=== PATIENT | male | born 1985 | race Caucasian/White ===

== ENCOUNTER 2018-04-30 10:39 | Emergency (ER) | payer SELFPAY ==
[~2018-04-30] VITALS: Ht 177.8 cm; Wt 140.6 kg
[2018-04-30 10:40] VITALS: BP 130/72
--- NOTE | 2018-04-30 10:43 | NUR ---
PT AMBULATED TO ER BED 07
--- NOTE | 2018-04-30 10:50 | NUR ---
bib family with c/o throat pain, subjective fevers, fatigue, and "coughing up blood"; Seen at [facility] 4 days ago, sent home with abx, which pt reports still taking. DENIES N/V/D; SKIN IS PINK/WARM/DRY; AAOX4 WITH EVEN AND STEADY GAIT; HR EVEN AND REGULAR; PT DENIES ANY FEVER, CP, SOB AT THIS TIME; PATIENT STATES PAIN OF 10/10 AT THIS TIME; VSS; PATIENT POSITIONED FOR COMFORT; HOB ELEVATED; BEDRAILS UP X2; BED DOWN. ER MD MADE AWARE OF PT STATUS.
[2018-04-30] MEDS ORDERED: cefTRIAXone 1,000 MG in LIDOCAINE 1% ***ER ONLY *** 2.1 ML IM ONE (11:00)
[2018-04-30] MEDS ORDERED: DEXAMETHASONE 10 MG/ML VIAL IM ONE (11:00)
[2018-04-30] MEDS ORDERED: ALBUTEROL SULFATE/IPRATROPIU 3 ML SOL IH ONE (11:00)
[2018-04-30] MEDS ORDERED: cefTRIAXone 1,000 MG VIAL ONE (11:09)
[2018-04-30] MEDS ORDERED: LIDOCAINE MPF 1% - 5 mL VIAL 5 ML ONE (11:10)
--- NOTE | 2018-04-30 11:13 | NUR ---
RT AT BEDSIDE.
[2018-04-30 11:29] VITALS: BP 125/78
--- NOTE | 2018-04-30 11:30 | NUR ---
Patient discharged with v/s stable. Written and verbal after care instructions given and explained. Patient alert, oriented and verbalized understanding of instructions. Ambulatory with steady gait. All questions addressed prior to discharge. ID band removed. Patient advised to follow up with PMD. Rx of PROEMTHAZINE, PROMETHAZINE, CLINDAMYCIN given. Patient educated on indication of medication including possible reaction and side effects. Opportunity to ask questions provided and answered.
[2018-05-01] MEDS ORDERED: LACT10CA PO (16:24)
[2018-05-01] MEDS ORDERED: ACET-9525 PO (16:24)
[2018-05-01] MEDS ORDERED: ATI2I IM/IVP (16:24)
[2018-05-01] MEDS ORDERED: ACET-1182 PO (16:24)
[2018-05-01] MEDS ORDERED: CEFT1SOL1 IV (16:24)
[2018-05-01] MEDS ORDERED: D50SYR IVP (16:24)
[2018-05-01] MEDS ORDERED: CALC-846 PO (16:24)
[2018-05-01] MEDS ORDERED: GLUC-805 FS (16:24)
[2018-05-01] MEDS ORDERED: DOCU-299 PO (16:24)
[2018-05-01] MEDS ORDERED: PHOS1PDR4 PO (16:24)
[2018-05-01] MEDS ORDERED: ONDA2SOL45 IM/IVP (16:24)
== END 2018-04-30 11:30 | disposition home or self-care (01) ==
LOC: MED 10:39
DX: J32.9 Chronic sinusitis, unspecified (principal)
CPT/HCPCS: 82948; 94640; 96372; 99283; J0696; J1100; J2001; J7620

== ENCOUNTER 2018-04-30 22:16 | Inpatient (IN) | payer BC ==
[~2018-04-30] VITALS: Ht 177.8 cm; Wt 100.2 kg
[2018-04-30 22:18] VITALS: BP 154/91
[2018-04-30] MEDS ORDERED: NACL 0.9% 1,000 ML IV ONE ×2 (22:55→23:55)
[2018-04-30] MEDS ORDERED: LORazepam 1 MG TAB PO ONE (22:55)
[2018-04-30] MEDS ORDERED: KETOROLAC 30 MG/ML VIAL IVP ONE (22:55)
[2018-05-01] VITALS (11 sets, daily range): BP systolic 122–164; BP diastolic 44–89
[2018-05-01] MEDS ORDERED: NACL 0.9% 2,000 ML IV ONE (00:15)
[2018-05-01] MEDS ORDERED: INSULIN REGULAR, HUMAN 100 UNIT/ML VIAL IVP ONE (00:15)
[2018-05-01 00:17] LABS: BARBITURATE, URINE NEG. ng/ml (NEG <=200); BENZODIAZEPINE, URINE NEG. ng/mL (NEG <=200); CANNABINOID, URINE NEG. ng/mL (NEG <=50); COCAINE, URINE NEG. ng/mL (NEG <=300); PHENCYCLIDINE SCREEN,URINE NEG. ng/mL (NEG <=25)
[2018-05-01 00:25] LABS: OPIATE, URINE NEG. ng/mL (NEG <=2000)
[2018-05-01] MEDS ORDERED: ZOLPIDEM 5 MG TAB PO PRN (00:45)
[2018-05-01] MEDS ORDERED: ONDANSETRON 4 MG/2 ML VIAL IM/IVP PRN (00:45)
[2018-05-01] MEDS ORDERED: ACETAMINOPHEN 325 MG TAB PO PRN (00:45)
[2018-05-01] MEDS ORDERED: HYDROcodone/APAP 5/325 MG 1 TAB TAB PO PRN (00:45)
[2018-05-01] MEDS ORDERED: DOCUSATE SODIUM 100 MG GELCAP PO PRN (00:45)
[2018-05-01] MEDS ORDERED: INSULIN REGULAR, HUMAN 100 UNIT in NACL 0.9% 100 ML IV SCH ×2 (00:50)
[2018-05-01] MEDS ORDERED: DEXTROSE 50% 50 ML SYR IVP PRN (00:50)
[2018-05-01 01:06] LABS: HEMATOCRIT 44.3 % (36-52); HEMOGLOBIN 14.7 g/dL (12.0-18.0); MEAN CORPUSCULAR HEMOGLOBIN 32 pg (27-31); MEAN CORPUSCULAR HGB CONC 33 g/dL (33-37); MEAN CORPUSCULAR VOLUME 95.1 fL (80-94); PLATELET COUNT (AUTO) 242 K/uL (140-450); RED BLOOD CELL COUNT(AUTO) 4.65 MIL/uL (4.20-6.10); RED CELL DISTRIBUTION WIDTH 13.7 % (11.6-13.7); WHITE BLOOD COUNT (AUTO) 13.4 K/uL (4.8-10.8)
[2018-05-01 01:23] LABS: ALBUMIN 3.5 g/dL (3.4-5.0); ANION GAP 31.2 (8-16); CREATININE 1.1 mg/dL (0.7-1.3); POTASSIUM 4.4 mmol/L (3.5-5.1)
[2018-05-01] MEDS: BLOOD GLUCOSE MONITORING 1 DEV DEV FS SCH ×21 (01:28→21:12)
[2018-05-01 01:30] LABS: LYMPHOCYTES % (MANUAL) 6 % (20-46); MONOCYTES % (MANUAL) 4 % (5-12); PROTHROMBIN TIME 10.5 secs (10.8-13.4)
[2018-05-01 01:31] LABS: CREATINE KINASE MB 0.8 ng/mL (0-3.6)
[2018-05-01 01:34] LABS: APPEARANCE,URINE CLEAR (CLEAR); BILIRUBIN,URINE NEGATIVE (NEGATIVE); BLOOD, URINE 2+ (NEGATIVE); COLOR,URINE YELLOW (YELLOW); LEUKOCYTE ESTERASE ,URINE NEGATIVE (NEGATIVE); NITRITE, URINE NEGATIVE (NEGATIVE); PH,URINE 5.5 (5.0-9.0); UGLUCOSE 2+ (NEGATIVE)
[2018-05-01 01:45] LABS: CARBON DIOXIDE 7.2 mmol/L (21-32)
[2018-05-01] MEDS ORDERED: PETROLATUM WHITE 30 GM TUBE TP SCH (02:00)
[2018-05-01 02:11] LABS: HYALINE CASTS, URINE 0-10 /LPF (None Seen); RBC,URINE 0-5 (RARE) /HPF (0-5); URINE AMORPHOUS URATE 2+ /HPF (None Seen); WBC,URINE 0-5 (RARE) /HPF (0-5)
[2018-05-01] MEDS: NACL 0.9% 1,000 ML IV SCH ×6 (02:18→20:11)
[2018-05-01 02:25] LABS: FREE T4 (FREE THYROXINE) 0.84 ng/dL (0.76-1.46); PHOSPHORUS 3.4 mg/dL (2.5-4.9); THYROID STIMULATING HORMONE 0.84 uIU/mL (0.34-3.74)
[2018-05-01] MEDS ORDERED: cefTRIAXone 1,000 MG VIAL ONE (04:38)
[2018-05-01 07:03] LABS: ANION GAP 29.5 (8-16)
[2018-05-01 07:08] LABS: CARBON DIOXIDE 6.5 mmol/L (21-32)
[2018-05-01 07:56] LABS: CHOL/HDL RATIO 5.5 (1-4.5)
[2018-05-01] MEDS ORDERED: MORPHINE SULFATE 4 MG/ML SYR IVP SCH (08:21)
[2018-05-01 08:36] LABS: HEMATOCRIT 40.7 % (36-52); HEMOGLOBIN 13.7 g/dL (12.0-18.0); MEAN CORPUSCULAR HEMOGLOBIN 31 pg (27-31); MEAN CORPUSCULAR HGB CONC 34 g/dL (33-37); MEAN CORPUSCULAR VOLUME 92.4 fL (80-94); PLATELET COUNT (AUTO) 234 K/uL (140-450); RED BLOOD CELL COUNT(AUTO) 4.41 MIL/uL (4.20-6.10); RED CELL DISTRIBUTION WIDTH 13.4 % (11.6-13.7); WHITE BLOOD COUNT (AUTO) 11.7 K/uL (4.8-10.8)
[2018-05-01] MEDS ORDERED: LACTOBACILLUS RHAMNOSUS GG 1 EACH CAP PO SCH (09:00)
[2018-05-01] MEDS ORDERED: CALCIUM CARB/VIT-D 500 MG/200 IU 1 TAB PO SCH (09:00)
[2018-05-01] MEDS: LORazepam 2 MG/ML VIAL IM/IVP PRN ×2 (09:20→18:34)
[2018-05-01 09:24] LABS: EOSINOPHILS % (MANUAL) 1 % (0-4); LYMPHOCYTES % (MANUAL) 8 % (20-46); MONOCYTES % (MANUAL) 8 % (5-12)
[2018-05-01] MEDS: KCL 20 MEQ/WATER INJ PREMIX 200 ML IV SCH ×2 (10:59→11:06)
[2018-05-01 11:24] LABS: CREATININE 1.1 mg/dL (0.7-1.3)
[2018-05-01 11:29] LABS: PHOSPHORUS 1.8 mg/dL (2.5-4.9)
[2018-05-01] MEDS ORDERED: SODIUM PHOS / POTASSIUM PHOS 1 PKT PDR PO SCH (13:00)
[2018-05-01 13:29] LABS: ANION GAP 24.1 (8-16); CARBON DIOXIDE 11.6 mmol/L (21-32)
[2018-05-01 13:34] LABS: MAGNESIUM 1.9 mg/dL (1.8-2.4); PHOSPHORUS 1.4 mg/dL (2.5-4.9)
[2018-05-01 13:46] LABS: POTASSIUM 2.7 mmol/L (3.5-5.1)
[2018-05-01] MEDS ORDERED: KCL 20 MEQ/WATER INJ PREMIX 200 ML IV SCH (15:00)
[2018-05-01] MEDS ORDERED: LACT10CA PO (16:24)
[2018-05-01] MEDS ORDERED: DOCU-299 PO (16:24)
[2018-05-01] MEDS ORDERED: CALC-846 PO (16:24)
[2018-05-01] MEDS ORDERED: ONDA2SOL45 IM/IVP (16:24)
[2018-05-01] MEDS ORDERED: GLUC-805 FS (16:24)
[2018-05-01] MEDS ORDERED: PHOS1PDR4 PO (16:24)
[2018-05-01] MEDS ORDERED: CEFT1SOL1 IV (16:24)
[2018-05-01] MEDS ORDERED: ACET-9525 PO (16:24)
[2018-05-01] MEDS ORDERED: D50SYR IVP (16:24)
[2018-05-01] MEDS ORDERED: ACET-1182 PO (16:24)
[2018-05-01] MEDS ORDERED: ATI2I IM/IVP (16:24)
[2018-05-01 16:53] LABS: ANION GAP 25.6 (8-16)
[2018-05-01 16:57] LABS: MAGNESIUM 1.8 mg/dL (1.8-2.4); PHOSPHORUS 1.3 mg/dL (2.5-4.9)
[2018-05-01 17:00] LABS: POTASSIUM 2.6 mmol/L (3.5-5.1)
[2018-05-01 20:56] LABS: MAGNESIUM 1.9 mg/dL (1.8-2.4); PHOSPHORUS 1.2 mg/dL (2.5-4.9)
[2018-05-02 09:26] LABS: LACTATE DEHYDROGENASE 184 IU/L (121-224)
[2018-05-04 06:18] LABS: LD1 FRACTION 19 % (17-32); LD2 FRACTION 26 % (25-40); LD3 FRACTION 17 % (17-27); LD4 FRACTION 11 % (5-13)
== END 2018-05-01 21:25 | disposition short-term general hospital (02) | DRG 871 ==
LOC: MED 22:16 → MIC 05-01 00:44
PROVIDERS: ADMIT General Practice; ATTEND General Practice
PROC: 02HV33Z Insertion of Infusion Device into Superior Vena Cava, Percutaneous Approach (ICD-10-PCS; principal; 2018-05-01)
PROC: B548ZZA Ultrasonography of Superior Vena Cava, Guidance (ICD-10-PCS; 2018-05-01)
DX: A41.9 Sepsis, unspecified organism (principal); E11.10 Type 2 diabetes mellitus with ketoacidosis without coma; K85.90 Acute pancreatitis without necrosis or infection, unspecified; J69.0 Pneumonitis due to inhalation of food and vomit; E87.1 Hypo-osmolality and hyponatremia; N39.0 Urinary tract infection, site not specified; J98.11 Atelectasis; D68.9 Coagulation defect, unspecified; R65.20 Severe sepsis without septic shock; E78.5 Hyperlipidemia, unspecified; E83.51 Hypocalcemia; J02.8 Acute pharyngitis due to other specified organisms; E86.0 Dehydration; E87.6 Hypokalemia; I10 Essential (primary) hypertension; E66.9 Obesity, unspecified; Z68.31 Body mass index [BMI] 31.0-31.9, adult
CPT/HCPCS: 36415; 36600; 71045; 80048; 80053; 80305; 81001; 82150; 82550; 82553; 82803; 82948; 83036; 83605; 83625; 83690; 83735; 83880; 84100; 84134; 84439; 84443; 84484; 85025; 85610; 85730; 87040; 87081; 87086; 87804; 93005; 96361; 96374; 96375; 99285; J0696; J1642; J1815; J1885; J2060; J2270; J3480; J7030; J7060; Q0092